=== PATIENT | male | born 1960 | race Caucasian/White ===

== ENCOUNTER 2017-02-05 10:05 | Emergency (ER) | payer SELFPAY ==
[~2017-02-05] VITALS: Ht 165.1 cm; Wt 62.0 kg
[2017-02-05 10:17] LABS: GLUCOSE,POINT OF CARE 209 MG/DL (70-110)
[2017-02-05] MEDS ORDERED: INSU100V12 SQ (10:21)
[2017-02-05] MEDS: PROPARACAINE HCL 0.5% 15 ML OPHTHALMIC SOLUTION OD ONE ×2 (10:59→12:04)
[2017-02-05 11:37] VITALS: BP 158/95
== END 2017-02-05 11:57 | disposition home or self-care (01) ==
LOC: EMS 10:08
DX: H54.7 Unspecified visual loss (principal); R03.0 Elevated blood-pressure reading, without diagnosis of hypertension; E11.9 Type 2 diabetes mellitus without complications; Z79.4 Long term (current) use of insulin
CPT/HCPCS: 82962; 99283